=== PATIENT | female | born 1980 | race Caucasian/White ===

== ENCOUNTER 2016-09-27 18:44 | Emergency (ER) | payer OTHER ==
[~2016-09-27 18:44] MED LIST: BACTRIM DS TABL1 TAB PO; CLEOCIN PO; FLEXERIL10 MG PO; HYDROCODON-ACE1 EACH PO; IBUPROFEN PO; MOTRIN600 MG PO; NO MEDICATIONS; PHENERGAN PO; ROBAXIN500 MG PO; VICODIN 5/500 T1 TAB PO; VISTARIL PO; VOLTAREN75 MG PO; ZOLOFT PO
== END 2016-09-27 19:55 | disposition home or self-care (01) ==
LOC: SED 18:44
DX: S01.311A Laceration without foreign body of right ear, initial encounter (principal); F41.0 Panic disorder [episodic paroxysmal anxiety]; F17.200 Nicotine dependence, unspecified, uncomplicated; W22.8XXA Striking against or struck by other objects, initial encounter; Y92.9 Unspecified place or not applicable
CPT/HCPCS: 99283

== ENCOUNTER 2016-12-19 23:40 | Emergency (ER) | payer OTHER ==
[~2016-12-19] VITALS: Ht 172.7 cm; Wt 72.6 kg
== END 2016-12-20 00:24 | disposition home or self-care (01) ==
LOC: SED 23:40
DX: B02.9 Zoster without complications (principal); F17.200 Nicotine dependence, unspecified, uncomplicated
CPT/HCPCS: 99282